=== PATIENT | female | born 1960 | race Caucasian/White ===

== ENCOUNTER 2019-02-26 22:08 | Emergency (ER) | payer MEDICAID ==
[~2019-02-26] VITALS: Ht 157.5 cm; Wt 84.0 kg
[2019-02-26] MEDS ORDERED: KETOROLAC 30MG/ML VIAL IM ONE (23:30)
[2019-02-26] MEDS ORDERED: MORPHINE SULFATE 10 MG/ML CPJ IM ONE (23:30)
[2019-02-27] MEDS ORDERED: HYDROCODONE/ACETAMINOPHEN 5/325MG TABLET PO ONE (01:45)
[2019-02-27 03:04] VITALS: BP 144/70
== END 2019-02-27 03:18 | disposition home or self-care (01) ==
LOC: ER 22:08
DX: S06.9X1A Unspecified intracranial injury with loss of consciousness of 30 minutes or less, initial encounter (principal); S00.03XA Contusion of scalp, initial encounter; I10 Essential (primary) hypertension; E11.9 Type 2 diabetes mellitus without complications; E78.00 Pure hypercholesterolemia, unspecified; Z88.8 Allergy status to other drugs, medicaments and biological substances; W01.198A Fall on same level from slipping, tripping and stumbling with subsequent striking against other object, initial encounter; Y93.89 Activity, other specified; Y92.89 Other specified places as the place of occurrence of the external cause; Y99.8 Other external cause status
CPT/HCPCS: 70450; 93005; 96372; 99284; J1885; J2270